=== PATIENT | female | born 1990 | race Hispanic/Latino ===

== ENCOUNTER 2018-12-07 09:05 | Emergency (ER) | payer OTHER, SELFPAY ==
[2018-12-07 09:43] LABS: Urine Blood TRACE (NEG); Urine Glucose NEGATIVE (NEG); Urine Protein NEGATIVE (NEG); Urine Specific Gravity 1.025 (1.005-1.030); Urine pH 6.5 (5.0-7.0)
[2018-12-07 10:17] LABS: Urine Bacteria <20 /HPF (<20); Urine Culture Reflex Order NOT NEEDED; Urine RBC <5 /HPF (NONE SEEN)
--- NOTE | 2018-12-07 10:58 | RAD REPORT ---
EXAM DESCRIPTION: RAD - Abdomen 1 View (KUB) - 12/07/2018 10:53 am CLINICAL HISTORY: ABD PAIN Pain COMPARISON: No comparisons FINDINGS: The bowel gas pattern is non-obstructive. No evidence of free air or pneumatosis. No suspi cious calcifications. No significant bony findings. IMPRESSION: Negative examination.
--- NOTE | 2018-12-07 11:09 | ER ---
Nurse's Notes [facility] Name: Amairani Arellano Age: 28 yrs Sex: Female : 1990 Arrival Date: 12/07/2018 Time: 09:10 Bed 13 Private MD: Diagnosis: Lower abdominal pain, unspecified Presentation: 12/07 09:25 Presenting complaint: Patient states: lower abd pain X 3 weeks, started in RLQ now iw moved to left side, denies urinary s/s, denies n/v/d, LMP was 10-18-18, negative home UPT, denies vaginal bleeding/discharge, pain described as cramping. Transition of care: patient was not received from another setting of care. Onset of symptoms was November 23, 2018. Risk Assessment: Do you want to hurt yourself or someone else? Patient reports no desire to harm self or others. Initial Sepsis Screen: Does the patient meet any 2 criteria? No. Patient's initial sepsis screen is negative. Does the patient have a suspected source of infection? No. Patient's initial sepsis screen is negative. Care prior to arrival: None. 09:25 Method Of Arrival: Ambulatory iw 09:25 Acuity: [address]: 09:27 LMP 10/18/2018 iw Historical: - Allergies: 09:27 No Known Allergies; iw - Home Meds: 09:27 None [Active]; iw - PMHx: 09:27 None; iw - PSHx: 09:27 None; iw - Immunization history:: Adult Immunizations up to date. - Social history:: Smoking status: Patient/guardian denies using tobacco. - Ebola Screening: : Patient negative for fever greater than or equal to 101.5 degrees Fahrenheit, and additional compatible Ebola Virus Disease symptoms Patient denies exposure to infectious person Patient denies travel to an Ebola-affected area in the 21 days before illness onset No symptoms or risks identified at this time. Screenin:53 Abuse screen: Denies threats or abuse. Denies injuries from another. Nutritional ph screening: No deficits noted. Tuberculosis screening: No symptoms or risk factors identified. Fall Risk None identified. Assessment: 09:30 General: Appears in no apparent distress. comfortable, Behavior is calm, cooperative, ph Reports Denies. Pain: Complains of pain in left lower quadrant Pain radiates to right lower quadrant Pain currently is 7 out of 10 on a pain scale. Quality of pain is described as crampy, Pain began 3 weeks ago Is continuous, Alleviated by repositioning. Neuro: Level of Consciousness is awake, alert, obeys commands, Oriented to person, place, time, situation, Gait is steady. Cardiovascular: Capillary refill < 3 seconds Patient's skin is warm and dry. Respiratory: Respiratory effort is even, unlabored, Respiratory pattern is regular, symmetrical. GI: Abd is soft X 4 quads Abdomen is tender to palpation in left lower quadrant Reports lower abdominal pain, cramping, Patient currently denies diarrhea, nausea, vomiting. : Reports cramping, in left lower quadrant(s) Denies burning with urination, discharge, inability to void, pain urinary frequency, vaginal bleeding. EENT:. Derm: Skin is intact, is healthy with good turgor, Skin is pink, warm \T\ dry. Musculoskeletal: Circulation, motion, and sensation intact. Capillary refill < 3 seconds. 10:30 Reassessment: Patient appears in no apparent distress at this time. Patient and/or ph family updated on plan of care and expected duration. Pain level reassessed. Patient is alert, oriented x 3, equal unlabored respirations, skin warm/dry/pink. Vital Signs: 09:27 BP 126 / 75; Pulse 74; Resp 16; Temp 98.4(TE); Pulse Ox 100% on R/A; Weight 72.57 kg; iw Height 5 ft. 0 in. (152.40 cm); Pain 7/10; 10:30 BP 118 / 78; Pulse 72; Resp 18; Temp 98.0; Pulse Ox 99% on R/A; ph 09:27 Body Mass Index 31.25 (72.57 kg, 152.40 cm) iw ED Course: 09:10 Patient arrived in ED. mr 09:19 Annia Hook, TETO is Primary Nurse. ph 09:24 Katiuska Lawton FNP-C is PHCP. snw 09:24 Devonte Neff MD is Attending Physician. snw 09:26 Triage completed. iw 09:27 Arm band placed on. iw 10:00 Patient has correct armband on for positive identification. Bed in low position. Call ph light in reach. Side rails up X 1. Pulse ox on. NIBP on. 10:54 Abdomen 1 View (KUB) XRAY In Process Unspecified. EDMS 11:25 No provider procedures requiring assistance completed. Patient did not have IV access ph during this emergency room visit. Administered Medications: No medications were administered Outcome: 11:08 Discharge ordered by . [email or web address] 11:27 Patient left the ED. ph 11:27 Discharged to home ambulatory. ph 11:27 Condition: good 11:27 Discharge instructions given to patient, Instructed on discharge instructions, follow up and referral plans. medication usage, Demonstrated understanding of instructions, follow-up care, medications, Prescriptions given X 1. Signatures: Dispatcher [employer] EDMS Katiuska Lawton, ELENA LIFE MANAGER-Erendira Birch Irene, RN RN Annia Hook RN RN ph
--- NOTE | 2018-12-07 11:10 | EDPHYS ---
Physician Documentation [facility] Name: Amairani Arellano Age: 28 yrs Sex: Female : 1990 Arrival Date: 12/07/2018 Time: 09:10 Bed 13 Private MD: ED Physician Devonte Neff HPI: 12/07 09:46 This 28 yrs old Female presents to ER via Ambulatory with complaints of snw Abdominal Pain. 09:46 The patient presents with abdominal pain in the lower abdomen. Onset: The snw symptoms/episode began/occurred 3 week(s) ago, and became persistent. The symptoms do not radiate. Associated signs and symptoms: none. The symptoms are described as crampy. Modifying factors: The symptoms are alleviated by nothing, the symptoms are aggravated by nothing. Severity of pain: At its worst the pain was moderate. It is unknown whether or not the patient has had similar symptoms in the past. The patient has not recently seen a physician. 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 - Social history:: Smoking status: Patient/guardian denies using tobacco. - Ebola Screening: : Patient negative for fever greater than or equal to 101.5 degrees Fahrenheit, and additional compatible Ebola Virus Disease symptoms Patient denies exposure to infectious person Patient denies travel to an Ebola-affected area in the 21 days before illness onset No symptoms or risks identified at this time. ROS: 09:45 Constitutional: Negative for fever, chills, and weight loss, Eyes: Negative for injury, snw pain, redness, and discharge, ENT: Negative for injury, pain, and discharge, Neck: Negative for injury, pain, and swelling, Cardiovascular: Negative for chest pain, palpitations, and edema, Respiratory: Negative for shortness of breath, cough, wheezing, and pleuritic chest pain, Abdomen/GI: Positive for abdominal pain, negative for nausea, vomiting, diarrhea, and constipation, Back: Negative for injury and pain, : Negative for injury, bleeding, discharge, and swelling, MS/Extremity: Negative for injury and deformity, Skin: Negative for injury, rash, and discoloration, Neuro: Negative for headache, weakness, numbness, tingling, and seizure, Psych: Negative for depression, anxiety, suicide ideation, homicidal ideation, and hallucinations. Exam: 09:45 Constitutional: This is a well developed, well nourished patient who is awake, alert, snw and in no acute distress. Head/Face: Normocephalic, atraumatic. Eyes: Pupils equal round and reactive to light, extra-ocular motions intact. Lids and lashes normal. Conjunctiva and sclera are non-icteric and not injected. Cornea within normal limits. Periorbital areas with no swelling, redness, or edema. ENT: Nares patent. No nasal discharge, no septal abnormalities noted. Tympanic membranes are normal and external auditory canals are clear. Oropharynx with no redness, swelling, or masses, exudates, or evidence of obstruction, uvula midline. Mucous membranes moist. Neck: Trachea midline, no thyromegaly or masses palpated, and no cervical lymphadenopathy. Supple, full range of motion without nuchal rigidity, or vertebral point tenderness. No Meningismus. Chest/axilla: Normal chest wall appearance and motion. Nontender with no deformity. No lesions are appreciated. Cardiovascular: Regular rate and rhythm with a normal S1 and S2. No gallops, murmurs, or rubs. Normal PMI, no JVD. No pulse deficits. Respiratory: Lungs have equal breath sounds bilaterally, clear to auscultation and percussion. No rales, rhonchi or wheezes noted. No increased work of breathing, no retractions or nasal flaring. Abdomen/GI: Soft, non-tender, with normal bowel sounds. No distension or tympany. No guarding or rebound. No evidence of tenderness throughout. Back: No spinal tenderness. No costovertebral tenderness. Full range of motion. Skin: Warm, dry with normal turgor. Normal color with no rashes, no lesions, and no evidence of cellulitis. MS/ Extremity: Pulses equal, no cyanosis. Neurovascular intact. Full, normal range of motion. Neuro: Awake and alert, GCS 15, oriented to person, place, time, and situation. Cranial nerves II-XII grossly intact. Motor strength 5/5 in all extremities. Sensory grossly intact. Cerebellar exam normal. Normal gait. Psych: Awake, alert, with orientation to person, place and time. Behavior, mood, and affect are within normal limits. Vital Signs: 09:27 BP 126 / 75; Pulse 74; Resp 16; Temp 98.4(TE); Pulse Ox 100% on R/A; Weight 72.57 kg; iw Height 5 ft. 0 in. (152.40 cm); Pain 7/10; 10:30 BP 118 / 78; Pulse 72; Resp 18; Temp 98.0; Pulse Ox 99% on R/A; ph 09:27 Body Mass Index 31.25 (72.57 kg, 152.40 cm) iw MDM: 09:47 Patient medically screened. snw 11:10 Data reviewed: vital signs, nurses notes. Data interpreted: Pulse oximetry: on room air snw is 100 %. Interpretation: normal. Counseling: I had a detailed discussion with the patient and/or guardian regarding: the historical points, exam findings, and any diagnostic results supporting the discharge/admit diagnosis, lab results, radiology results, the need for outpatient follow up, to return to the emergency department if symptoms worsen or persist or if there are any questions or concerns that arise at home. Special discussion: Based on the patient's Hx, exam, and Dx evaluation, there is no indication for emergent surgery or inpatient Tx. It is understood by the patient/guardian that if the Sx's persist or worsen they need to return immediately for re-evaluation. Based on the history and exam findings, there is no indication for further emergent testing or inpatient evaluation. I discussed with the patient/guardian the need to see the OB Gyne specialist for further evaluation of the symptoms. I discussed with the patient/guardian the need to see the primary care provider for further evaluation of the symptoms. 12/07 09:24 Order name: Urine Culture snw 12/07 09:24 Order name: Urine Microscopic Only; Complete Time: 10:26 snw 12/07 09:24 Order name: Urine Test (obtain specimen); Complete Time: 09:56 snw 12/07 09:41 Order name: Urine Dipstick--Ancillary (enter results); Complete Time: 09:47 eb 12/07 09:41 Order name: Urine --Ancillary (enter results); Complete Time: 09:47 eb 12/07 10:26 Order name: Abdomen 1 View (KUB) XRAY; Complete Time: 11:01 snw 12/07 09:24 Order name: Urine Dipstick-Ancillary (obtain specimen); Complete Time: 09:56 snw Administered Medications: No medications were administered Disposition: 15:08 Co-signature as Attending Physician, Devonte Neff MD I agree with the assessment and kdr plan of care. Disposition: 12/07/18 11:08 Discharged to Home. Impression: Lower abdominal pain, unspecified. - Condition is Stable. - Discharge Instructions: Abdominal Pain, Adult. - Prescriptions for Bentyl 20 mg Oral Tablet - take 1 tablet by ORAL route every 6 hours As needed; 20 tablet. - Medication Reconciliation Form, Thank You Letter, Antibiotic Education, Prescription Opioid Use form. - Follow up: Private Physician; When: 2 - 3 days; Reason: Recheck today's complaints, Continuance of care, Re-evaluation by your physician. Follow up: Emergency Department; When: As needed; Reason: Worsening of condition. Signatures: Dispatcher [employer] EDMS Devonte Neff MD MD [facility] Katiuska Lawton, ASE CERTIFIED TECHNICIAN-C ASE CERTIFIED TECHNICIAN-Csnw Claudia Grant, TETO RN iw Annia Hook, RN RN ph Corrections: (The following items were deleted from the chart) 11:27 11:08 12/07/2018 11:08 Discharged to Home. Impression: Lower abdominal pain, ph unspecified. Condition is Stable. Forms are Medication Reconciliation Form, Thank You Letter, Antibiotic Education, Prescription Opioid Use. Follow up: Private Physician; When: 2 - 3 days; Reason: Recheck today's complaints, Continuance of care, Re-evaluation by your physician. Follow up: Emergency Department; When: As needed; Reason: Worsening of condition. snw
[2018-12-07 11:36] VITALS: BP 126/75; TEMP 98.4; O2SAT 100
== END 2018-12-07 11:27 | disposition home or self-care (01) ==
LOC: ER 09:05
DX: R10.30 Lower abdominal pain, unspecified (principal)
CPT/HCPCS: 74018; 81003; 81015; 81025; 87086; 87088; 99283